=== PATIENT | female | born 1990 | race Caucasian/White ===

== ENCOUNTER 2021-05-24 12:45 | Inpatient (IN) | payer BC, MEDICARE ==
[2021-05-24] MEDS ORDERED: Sodium Chloride 0.9% 10 ML Syringe FLUSH PRN (16:09)
[2021-05-24] MEDS ORDERED: Ampicillin 2 GM in Sodium Chloride 0.9% 100 ML IV ONE (17:00)
[2021-05-24] MEDS ORDERED: Ampicillin 1 GM in Sodium Chloride 0.9% 50 ML IV SCH (21:00)
[2021-05-24] MEDS ORDERED: Lidocaine 1% 50 ML MDV ONE (22:26)
[2021-05-24] MEDS ORDERED: Lidocaine 1% 50 ML MDV INJECT ONE (22:30)
[2021-05-24] MEDS ORDERED: Acetaminophen 325 MG Tab, 50 Tab Bulk Bottle PO PRN (23:14)
[2021-05-24] MEDS ORDERED: Ibuprofen 200 MG Tab, 24 Tab Bulk Bottle PO PRN (23:15)
[2021-05-24] MEDS ORDERED: Witch Hazel Medicated Pads 100/Jar TOP PRN (23:19)
[2021-05-24] MEDS ORDERED: Benzocaine 20% Top Spray 56 GM Bottle TOP SCH (23:45)
[2021-05-24] MEDS ORDERED: Lanolin 100% Cream 40 GM Tube TOP PRN (23:51)
[2021-05-25] MEDS ORDERED: Tranexamic Acid 1,000 MG in Sodium Chloride 0.9% 500 ML IV ONE (00:56)
[2021-05-25] MEDS ORDERED: oxyCODONE 5 MG Tab PO ONE (00:56)
[2021-05-25] MEDS ORDERED: Misoprostol 50 MCG (1/2 of 100 MCG) Tab VAG ONE (00:59)
[2021-05-25] MEDS ORDERED: Tranexamic Acid 1,000 MG in Sodium Chloride 0.9% 100 ML IV ONE (01:01)
[2021-05-25] MEDS ORDERED: Sodium Chloride 0.9% 100 ML ONE (01:03)
[2021-05-25] MEDS ORDERED: Misoprostol 200 MCG Tab ONE (01:10)
[2021-05-25] MEDS ORDERED: Misoprostol 200 MCG Tab VAG ONE (01:13)
[2021-05-25] MEDS ORDERED: Misoprostol 200 MCG Tab RECTAL ONE (01:24)
[2021-05-25] MEDS ORDERED: fentaNYL 100 MCG/2 ML SDV ONE (01:43)
[2021-05-25] MEDS ORDERED: fentaNYL 100 MCG/2 ML SDV IVPUSH ONE (01:45)
[2021-05-25] MEDS ORDERED: Methylergonovine 0.2 MG/1 ML Amp ONE (01:50)
[2021-05-25] MEDS ORDERED: Carboprost Tromethamine 250 MCG/1 ML Amp ONE (01:50)
[2021-05-25] MEDS ORDERED: Loperamide 2 MG Cap PO ONE (01:57)
[2021-05-25] MEDS ORDERED: Methylergonovine 0.2 MG/1 ML Amp IM PRN (02:10)
[2021-05-25] MEDS ORDERED: Carboprost Tromethamine 250 MCG/1 ML Amp IM ONE (02:11)
[2021-05-25] MEDS ORDERED: Sodium Chloride 0.9% 1,000 ML IV SCH ×2 (02:15)
[2021-05-25] MEDS: Venlafaxine 75 MG Cap.ER PO SCH (13:39)
[2021-05-25] MEDS: levETIRAcetam 250 MG Tab PO SCH ×3 (13:39→20:08)
[2021-05-26] MEDS: Venlafaxine 75 MG Cap.ER PO SCH (09:36)
[2021-05-26] MEDS: levETIRAcetam 250 MG Tab PO SCH (09:37)
== END 2021-05-26 13:21 | disposition home or self-care (01) | DRG 806 ==
LOC: JP.OBCHECK 12:45 → JP.OB 12:53 → JP.OBCHECK 16:00 → JP.OB 16:10 → OBSVTOIN 22:20 → JP.MS 05-25 05:20
PROVIDERS: ADMIT Obstetrics & Gynecology; ATTEND Obstetrics & Gynecology
PROC: 10E0XZZ Delivery of Products of Conception, External Approach (ICD-10-PCS; principal; 2021-05-24)
PROC: 0KQM0ZZ Repair Perineum Muscle, Open Approach (ICD-10-PCS; 2021-05-24)
PROC: 10907ZC Drainage of Amniotic Fluid, Therapeutic from Products of Conception, Via Natural or Artificial Opening (ICD-10-PCS; 2021-05-24)
DX: O14.04 Mild to moderate pre-eclampsia, complicating childbirth (principal); O99.354 Diseases of the nervous system complicating childbirth; Z37.0 Single live birth; O24.424 Gestational diabetes mellitus in childbirth, insulin controlled; G40.909 Epilepsy, unspecified, not intractable, without status epilepticus; O72.1 Other immediate postpartum hemorrhage; O70.1 Second degree perineal laceration during delivery; Z3A.37 37 weeks gestation of pregnancy
CPT/HCPCS: 36415; 36430; 51701; 51702; 80053; 80305-QW; 81001; 82570; 82947; 84156; 85025; 85027; 86850; 86900; 86901; 86920; 86922; 99211; A9270-GY; J0290; J2001; J2210; J2590; J3010; J7030; P9016

== ENCOUNTER 2022-04-23 18:03 | Emergency (ER) | payer OTHER, MEDICARE, BC ==
[2022-04-23] MEDS ORDERED: Methocarbamol 500 MG Tab PO ONE (18:47)
[2022-04-23] MEDS ORDERED: Ketorolac 30 MG/ML SDV IM ONE (18:47)
== END 2022-04-23 20:38 | disposition home or self-care (01) ==
LOC: JP.ED 18:03
DX: S39.012A Strain of muscle, fascia and tendon of lower back, initial encounter (principal); Z88.1 Allergy status to other antibiotic agents; Z86.16 Personal history of COVID-19; W00.0XXA Fall on same level due to ice and snow, initial encounter
CPT/HCPCS: 72131; 76377; 96372; 99283; A9270; J1885